=== PATIENT | female | born 1985 | race Asian ===

== ENCOUNTER 2016-11-17 15:37 | Emergency (ER) | payer OTHER ==
[~2016-11-17] VITALS: Ht 162.6 cm; Wt 86.2 kg
[~2016-11-17 15:37] MED LIST: AMOXIL500 MG PO
--- NOTE | 2016-11-17 16:54 | ED GENERAL ADULT ---
History of Present Illness General Chief Complaint: Dizziness Stated Complaint: DIZZINESS Source: patient Exam Limitations: no limitations Vital Signs & Intake/Output Vital Signs & Intake/Output Vital Signs Date Time Temp Pulse Resp B/P Pulse O2 O2 Flow FiO2 Ox Delivery Rate 11/17 1918 97.2 79 18 152/72 100 Room Air 11/17 1743 Room Air Room Air 11/17 1541 97.4 80 18 154/92 100 Room Air Allergies Coded Allergies: NO KNOWN ALLERGIES (05/09/12) Reconcile Medications Amoxicillin (Amoxil) 500 MG CAP 1 CAP PO TID SINUSITIS Meclizine HCl 12.5 MG TABLET 1 TAB PO TID PRN DIZZINESS Triage Note: C/O FEELING DIZZY SINCE YESTERDAY, WITH NASAL BLEEDING TODAY AND HEADACHE. SIMILIAR EPISODE LAST MONTH. DENIES CHEST PAIN OR SOB. Triage Nurses Notes Reviewed? yes Onset: Gradual Duration: 2 MONTH Timing: recent history Injury Environment: home Severity: moderate Severity Numbers: 6 No Modifying Factors: none : No Patient currently breastfeeds: No HPI: Patient is a 31-year-old female presenting to the emergency department with chief complaint of dizziness, frontal headaches, and nosebleeds that have been going on daily for the past 2 months. She reports several episodes a day. She reports that the dizziness starts and then it progresses to bilateral visual changes which then progresses to a headache and nosebleed. Headache is located over bilateral temples and in the occipital region of the scalp. She describes the headache as throbbing in nature. Positive nausea which has been continuous. The nosebleed and visual changes usually last less than 5 minutes. (ESTEBAN MCCLAIN) Past History Travel History Traveled to [place] past 21 day No Medical History Any Pertinent Medical History? see below for history Neurological: NONE EENT: NONE Cardiovascular: NONE Respiratory: NONE Gastrointestinal: NONE Hepatic: NONE Renal: NONE Musculoskeletal: NONE Psychiatric: NONE Endocrine: NONE Blood Disorders: NONE Cancer(s): NONE DIRECTOR DATA ANALYTICS/Reproductive: NONE Surgical History Surgical History: N Psychosocial History What is your primary language Sudha Tobacco Use: Never used ETOH Use: denies use Family History Hx Contributory? No (ESTEBAN MCCLAIN) Review of Systems Review of Systems Constitutional: Reports: no symptoms. Comments Review of systems: See HPI, All other systems negative. Constitutional, no chills fever or weight loss HEENT: No no sore throat no congestion Cardiovascular: No chest pain ,palpitation , orthopnea or ankle swelling Skin, no jaundice no rashes Respiratory: No dyspnea cough sputum or hemoptysis GI: No nausea no vomiting : No dysuria No hematuria Muscle skeletal: no back pain, no neck pain, Neurologic: No numbness no confusion Psych: No stress anxiety or depression,. Heme/endocrine: No bruising no bleeding no polyuria or polydipsia Immunology: No splenectomy or history of AIDS (ESTEBAN MCCLAIN) Physical Exam Physical Exam General Appearance: well developed/nourished, no apparent distress, alert, awake , comfortable Comments: Well-developed well-nourished person in no acute distress HEENT: extraocular motion intact, no nystagmus. Pupils equally round and reactive to light and accommodation. DRIED BLOOD IN BOTH NARES. NO SEPTAL HEMATOMA. External auditory canal and Tympanic membranes clear. Pharynx normal. No swelling or edema. Dizziness is reproducible with changes of positions of the head. Neck: Supple, no lymphadenopathy, normal range of motion without pain or tenderness. No meningeal signs. Back: Nontender, no CVA tenderness. Full range of motion Cardiovascular: Regular rate and rhythms no murmurs rubs or gallops, normal JVP, NO CAROTID BRUITS. Respiratory: Chest nontender. No respiratory distress.breath sounds clear to auscultation bilaterally Extremity: No edema Neuro: Alert oriented x3, motor sensory normal, cranial nerves II through XII grossly intact. Skin: No appreciable rash on exposed skin, skin is warm and dry. Psych: Mood and affect is normal, memory and judgment is normal. Core Measures ACS in differential dx? No CVA/TIA Diagnosis: No Severe Sepsis Present: No Septic Shock Present: No (ESTEBAN MCCLAIN) Progress Differential Diagnoses I considered the following diagnoses in my evaluation of the patient: Upper respiratory congestion, sinusitis, , intracranial process, intracranial bleeding, uncontrolled hypertension, anemia, dehydration, viral labyrinthitis, benign positional vertigo Plan of Care: Orders Procedure Date/time Status Add-on Test (ER Only) 11/17 1808 Active TROPONIN LEVEL 11/17 1740 Complete MISTAKE 11/17 1730 Active HUMAN BETA HCG SCREEN 11/17 171 Complete COMPREHENSIVE METABOLIC PANEL 11/17 171 Complete CBC WITHOUT DIFFERENTIAL 11/17 1716 Complete EKG 11/17 1543 Active Laboratory Tests 11/17/16 1740: Anion Gap 11, Estimated GFR > 60, BUN/Creatinine Ratio 24.3, Glucose 115 H, Calcium 9.4, Total Bilirubin 0.3, AST 14, ALT 24, Alkaline Phosphatase 70, Troponin I < 0.01, Total Protein 7.8, Albumin 4.2, Globulin 3.6, Albumin/ Globulin Ratio 1.2, Total Beta HCG NEGATIVE, CBC w Diff NO MAN DIFF REQ, RBC 4.34, MCV 76.7 L, MCH 24.7 L, RDW 15.8 H, MPV 8.1, Gran % 53.3, Lymphocytes % 39.2, Monocytes % 6.0, Eosinophils % 0.8, Basophils % 0.7, Absolute Granulocytes 6.2, Absolute Lymphocytes 4.6 H, Absolute Monocytes 0.7 H, Absolute Eosinophils 0.1, Absolute Basophils 0.1, PUBS MCHC 32.2 L Diagnostic Imaging: Viewed by Me: CT Scan. Discussed w/RAD: CT Scan. Radiology Impression: PATIENT: LINA CASTRO PRESENT AGE: 31 PATIENT ACCOUNT NO: [id number] : 86 LOCATION: [facility] ORDERING PHYSICIAN: ESTEBAN CASTELLON SERVICE DATE: 11/17/16 EXAM TYPE: CAT - CT HEAD WO IV CONTRAST EXAMINATION: CT HEAD WITHOUT CONTRAST CLINICAL INFORMATION: 4-year-old female with headache, nosebleeds, and visual changes. COMPARISON: CT the brain on 06/11/2011. (Normal). TECHNIQUE: Contiguous axial imaging was performed from the skull base to vertex without intravenous administration of contrast. DLP: 601 mGy-cm. FINDINGS: There is no evidence of acute intracranial hemorrhage or territorial infarction. No abnormal mass effect or midline shift is seen. Lassiter to white matter differentiation is well preserved. No extra-axial fluid collections are identified. The ventricles are normal in size. There is no abnormal attenuation within the brain parenchyma. The osseous structures and soft tissues are normal. The mastoid air cells and visualized portions of the paranasal sinuses are well aerated. IMPRESSION: No acute intracranial pathology. Initial ED EKG: NSR (82) Comments: 11/17/2016 6:47:15 PM patient is alert and oriented neurologically intact no focal deficits. Patient declined medication for dizziness on arrival. We will assess CBC, CMP to make sure she is not anemic or dehydrated. Orthostatics are negative. EKG is normal sinus. Cannot exclude ocular migraines, intracranial process. Patient needs to follow with her primary care physician regarding hypertension. 11/17/2016 7:16:42 PM patient feeling improved without any medications here in the emergency department. She was informed of all lab results and imaging study results. She is afebrile. Likely positional vertigo, cannot exclude ocular migraines. She will follow up with ear nose and throat, given meclizine. Educated on increasing fluids and using humidifier. (ESTEBAN MCCLAIN) Departure Departure Time of Disposition: 1908 Disposition: HOME OR SELF CARE Condition: Stable Clinical Impression Primary Impression: Vertigo Secondary Impressions: Epistaxis Hypertension Qualifiers: Hypertension type: unspecified secondary hypertension Qualified Code: I15.9 - Secondary hypertension, unspecified Referrals: KISHAN HECTOR DO (PCP/Family) [facility] OSHEA,[facility] Additional Instructions: Follow-up with health call to make an appointment. Take meclizine as prescribed for vertigo. Increase fluids. Use humidifier to help moisten THE AIR YOU BREATH thE dry air can cause nosebleeds. Follow-up with the ENT as well. Departure Forms: Customer Survey General Discharge Information Prescriptions: Current Visit Scripts Meclizine HCl 1 TAB PO TID PRN DIZZINESS #20 TAB (ESTEBAN MCCLAIN) PA/COMPUTER INSTRUCTOR Co-Sign Statement Statement: ED Attending supervision documentation- [x] I saw and evaluated the patient. I have also reviewed all the pertinent lab results and diagnostic results. I agree with the findings and the plan of care as documented in the PA's/COMPUTER INSTRUCTOR's documentation. [] I have reviewed the ED Record and agree with the PA's/COMPUTER INSTRUCTOR's documentation. [] Additions or exceptions (if any) to the PAs/COMPUTER INSTRUCTOR's note and plan are summarized below: [] (JUAN LUIS ALVARADO DO) Critical Care Note Critical Care Note Critical Care Time: non-applicable (ESTEBAN MCCLAIN)
[2016-11-17 17:50] LABS: ABSOLUTE BASOPHIL COUNT 0.1 /CUMM (0.0-0.2); ABSOLUTE EOSINOPHIL COUNT 0.1 /CUMM (0.0-0.7); ABSOLUTE GRANULOCYTE CT 6.2 /CUMM (1.4-6.5); ABSOLUTE LYMPH COUNT 4.6 /CUMM (1.2-3.4); ABSOLUTE MONOCYTE COUNT 0.7 /CUMM (0.10-0.60); BASOPHIL % 0.7 % (0.0-2.0); EOSINOPHIL % 0.8 % (0-5); GRANULOCYTE % 53.3 % (42.2-75.2); HEMATOCRIT 33.3 % (37-47); MEAN CORPUSCULAR HGB 24.7 PG (27.0-31.0); MEAN CORPUSCULAR HGB CONC 32.2 G/DL (33.0-37.0); MEAN CORPUSCULAR VOLUME 76.7 FL (81.0-99.0); MEAN PLATELET VOLUME 8.1 FL (7.4-10.4); PLATELET COUNT 387 /CUMM (130-400); RBC DISTRIBUTION WIDTH 15.8 % (11.5-14.5); RED BLOOD CELL CT 4.34 /CUMM (4.20-5.40); WHITE BLOOD CELL COUNT 11.7 /CUMM (4.8-10.8)
--- NOTE | 2016-11-17 18:57 | CT SCAN REPORT ---
EXAMINATION: CT HEAD WITHOUT CONTRAST CLINICAL INFORMATION: 4-year-old female with headache, nosebleeds, and visual changes. COMPARISON: CT the brain on 06/11/2011. (Normal). TECHNIQUE: Contiguous axial imaging was performed from the skull base to vertex without intravenous administration of contrast. DLP: 601 mGy-cm. FINDINGS: There is no evidence of acute intracranial hemorrhage or territorial infarction. No abnormal mass effect or midline shift is seen. Lassiter to white matter differentiation is well preserved. No extra-axial fluid collections are identified. The ventricles are normal in size. There is no abnormal attenuation within the brain parenchyma. The osseous structures and soft tissues are normal. The mastoid air cells and visualized portions of the paranasal sinuses are well aerated. IMPRESSION: No acute intracranial pathology.
[2016-11-17] MEDS ORDERED: MECLIZINE HCL12.5 M1 PO (19:13)
[2016-11-17 19:19] VITALS: BP 152/72
== END 2016-11-17 19:29 ==
LOC: ERH 15:37
PROVIDERS: Physician Assistant
DX: R42 Dizziness and giddiness (principal); R04.0 Epistaxis; I10 Essential (primary) hypertension
CPT/HCPCS: 93005; 93010